=== PATIENT | male | born 1990 | race Caucasian/White ===

== ENCOUNTER 2016-06-26 18:31 | Emergency (ER) | payer OTHER, BC ==
[~2016-06-26] VITALS: Ht 172.7 cm; Wt 81.1 kg
[~2016-06-26 18:31] MED LIST: METO25TA3 PO; PRLSR20 PO
[2016-06-26 18:53] VITALS: TEMP 36.7; Ht 172.7 cm; Wt 81.1 kg
--- NOTE | 2016-06-26 19:33 | DIAGNOSTIC IMAGING REPORT ---
RIGHT HAND MIN 3 VIEWS ROUTINE CLINICAL HISTORY: Right hand pain COMPARISON: None. DISCUSSION: There is an old ununited ulnar styloid fracture. No acute fractures are visualized. There are no erosive or destructive changes. There is equivocal soft tissue swelling. IMPRESSION: Old ununited ulnar styloid fracture. No acute fractures or dislocations identified. Electronically signed by: Telly Jones M.D. 06/26/2016 7:31 PM Dictated Date/Time: 06/26/2016 7:30 PM
--- NOTE | 2016-06-26 19:48 | DIAGNOSTIC IMAGING REPORT ---
LEFT ELBOW MIN 3 VIEWS ROUTINE CLINICAL HISTORY: Left elbow pain status post trauma COMPARISON: None. DISCUSSION: The fat pads are not displaced. No fractures or dislocations are visualized. IMPRESSION: No fractures or dislocations identified. Electronically signed by: Telly Jones M.D. 06/26/2016 7:46 PM Dictated Date/Time: 06/26/2016 7:45 PM
--- NOTE | 2016-06-26 20:08 | DIAGNOSTIC IMAGING REPORT ---
CT HEAD WITHOUT CONTRAST (CT) CLINICAL HISTORY: Headache. Intoxication. COMPARISON STUDY: 10/24/2010 TECHNIQUE: Axial CT of the brain is performed from the vertex to the skull base. IV contrast was not administered for this examination. CT DOSE: FINDINGS: No intra or extra-axial mass lesions are visualized. There is no CT evidence of acute cortical infarction. There is no evidence of midline shift. There is no acute hemorrhage. No calvarial fractures are visualized. There is no evidence of pathologic ventricular dilatation. There is no evidence of acute sinusitis IMPRESSION: Normal noncontrast head CT. Electronically signed by: Telly Jones M.D. 06/26/2016 8:06 PM Dictated Date/Time: 06/26/2016 8:05 PM
--- NOTE | 2016-06-26 20:18 | DIAGNOSTIC IMAGING REPORT ---
CT OF THE CERVICAL SPINE CLINICAL HISTORY: Neck pain status post trauma. Intoxication. COMPARISON STUDY: 10/09/2010 CT DOSE: 1321.61 mGy.cm TECHNIQUE: CT scan of the cervical spine was performed from the skull base to the thoracic inlet. Images are reviewed in the axial, sagittal, and coronal planes. IV contrast was not administered for this examination. FINDINGS: The visualized portions of the lung apices reveal no evidence of pneumothorax. The prevertebral soft tissues are normal. No fractures or subluxations are visualized. IMPRESSION: No evidence of acute fracture or traumatic subluxation. Electronically signed by: Telly Jones M.D. 06/26/2016 8:16 PM Dictated Date/Time: 06/26/2016 8:15 PM
--- NOTE | 2016-06-26 20:51 | EMERGENCY ROOM VISIT NOTE ---
History First contact with patient: 19:00 Chief Complaint: WRIST PAIN Stated Complaint: R THUMB/WRIST INJURY History of Present Illness The patient is a 25 year old male who presents to the Emergency Room via private vehicle accompanied by father with complaints of "right thumb/wrist injury". The patient states that he has been drinking this evening attending the [facility], when he was in the back of a stationary truck 2 hours prior to arrival and fell to the ground, injuring his right thumb, left elbow and striking his head. The patient states that he is here because he cannot move his right thumb. He also states that he struck his head off of the ground and may have lost consciousness. He notes anything it is painful at this time is a right thumb but rates the pain as a 0/10. There is a small abrasion on the left elbow. His tetanus is believed to be up-to-date. Review of Systems A complete 6-point Review of Systems was discussed with the patient, with pertinent positives and negatives listed in the History of Present Illness. All remaining Review of Systems questions can be considered negative unless otherwise specified. Past Medical/Surgical History Medical Problems: (1) Appendectomy (2) Bicuspid aortic valve (3) GERD (gastroesophageal reflux disease) (4) Left ankle sprain (5) Left ankle sprain Surgical Problems: (1) History of tonsillectomy Family History Cancer Diabetes mellitus Gallbladder disease Heart disease Hypertension Kidney disease Kidney stones Social History Smoking Status: Current Every Day Smoker Alcohol Use: heavy Marital Status: in relationship Housing Status: lives with family Occupation Status: employed Current/Historical Medications Scheduled Metoprolol Succinate (Toprol Xl), 25 MG PO DAILY Omeprazole (Prilosec), 20 MG PO DAILY Scheduled PRN Oxycodone Ir (Roxicodone Ir), 1-2 TAB PO Q4H PRN for Pain Allergies Coded Allergies: No Known Allergies (Verified , 01/31/14) Physical Exam Vital Signs Date Time Temp Pulse Resp B/P Pulse Ox O2 Delivery O2 Flow Rate FiO2 06/26/16 21:13 111 18 142/94 96 06/26/16 18:53 36.7 82 16 134/82 98 Room Air Physical Exam VITAL SIGNS - Vital signs and nursing notes were reviewed. Afebrile, normotensive, non-tachycardic and is saturating well on room air 98%. GENERAL -25-year-old male appearing his stated age who is in no acute distress. Communicates well with provider and answers questions appropriately. SKIN - Without rashes. There is a small abrasion noted to the left elbow overlying the olecranon process. There is also a small abrasion noted to the dorsal aspect of the distal right thumb. HEAD - NC/AT. EYES - PERRL with EOMI bilaterally. Sclera anicteric. Palpebral conjunctiva pink and moist with no injection noted. EARS - No deformities of external structures noted on gross examination bilaterally. No pain elicited with palpation of the tragus bilaterally. External auditory canals without discharge or otorrhea. Tympanic membranes pearly blanchard without retraction or bulging. No fluid or purulent material visualized behind the TM. Handle of malleus, umbo, cone of light, pars tensa/ flaccid all easily visualized. NOSE - Midline and without cyanosis. No epistaxis or purulent drainage noted. Septum midline without deviation or septal hematoma noted. MOUTH/OROPHARYNX - Without perioral cyanosis. Buccal mucosa pink and moist and without leukoplakia. Tongue midline with equal elevation of palate bilaterally. No tonsillar hypertrophy, erythema, or exudates noted. Fair dentition noted. NECK - Neck with FROM. Supple to palpation. There is slight C-spine processes tenderness. LUNGS - Chest wall symmetric without accessory muscle use, intercostals retractions, or central cyanosis. Normal vesicular breath sounds CTA B/L. No wheezes, rales, or rhonchi appreciated. CARDIAC - RRR with S1/S2. No murmur, rubs, or gallops appreciated. EXTREMITIES - No clubbing or peripheral cyanosis. No pretibial edema present. He is neurovascularly intact in the right upper extremity. +5/5 strength noted in UE/LE bilaterally. There is tenderness to passive range of motion of the right thumb. There is no anatomical snuffbox tenderness. He is neurovascularly intact. NEUROLOGIC - Cranial nerves II through XII grossly intact. PSYCH - Pt is very pleasant and interacts well with examiner. Medical Decision & Procedures ER Provider Diagnostic Interpretation: CT OF THE CERVICAL SPINE CLINICAL HISTORY: Neck pain status post trauma. Intoxication. COMPARISON STUDY: 10/09/2010 CT DOSE: 1321.61 mGy.cm TECHNIQUE: CT scan of the cervical spine was performed from the skull base to the thoracic inlet. Images are reviewed in the axial, sagittal, and coronal planes. IV contrast was not administered for this examination. FINDINGS: The visualized portions of the lung apices reveal no evidence of pneumothorax. The prevertebral soft tissues are normal. No fractures or subluxations are visualized. IMPRESSION: No evidence of acute fracture or traumatic subluxation. Electronically signed by: Telly Jones M.D. 06/26/2016 8:16 PM Dictated Date/Time: 06/26/2016 8:15 PM LEFT ELBOW MIN 3 VIEWS ROUTINE CLINICAL HISTORY: Left elbow pain status post trauma COMPARISON: None. DISCUSSION: The fat pads are not displaced. No fractures or dislocations are visualized. IMPRESSION: No fractures or dislocations identified. Electronically signed by: Telly Jones M.D. 06/26/2016 7:46 PM Dictated Date/Time: 06/26/2016 7:[address] HEAD WITHOUT CONTRAST (CT) CLINICAL HISTORY: Headache. Intoxication. COMPARISON STUDY: 10/24/2010 TECHNIQUE: Axial CT of the brain is performed from the vertex to the skull base. IV contrast was not administered for this examination. CT DOSE: FINDINGS: No intra or extra-axial mass lesions are visualized. There is no CT evidence of acute cortical infarction. There is no evidence of midline shift. There is no acute hemorrhage. No calvarial fractures are visualized. There is no evidence of pathologic ventricular dilatation. There is no evidence of acute sinusitis IMPRESSION: Normal noncontrast head CT. Electronically signed by: Telly Jones M.D. 06/26/2016 8:06 PM Dictated Date/Time: 06/26/2016 8:05 PM RIGHT HAND MIN 3 VIEWS ROUTINE CLINICAL HISTORY: Right hand pain COMPARISON: None. DISCUSSION: There is an old ununited ulnar styloid fracture. No acute fractures are visualized. There are no erosive or destructive changes. There is equivocal soft tissue swelling. IMPRESSION: Old ununited ulnar styloid fracture. No acute fractures or dislocations identified. Electronically signed by: Telly Jones M.D. 06/26/2016 7:31 PM Dictated Date/Time: 06/26/2016 7:30 PM Medications Administered Medications (Trade) Dose Ordered Sig/Que Route Start Time Stop Time Status Last Admin Dose Admin Oxycodone HCl (Roxicodone Immediate Rel 5MG Home Pack) 1 homepack UD STAT PO 06/26/16 20:58 06/26/16 20:59 DC 06/26/16 20:[address] Medical Decision Patient was seen and evaluated as above. He presents with an inability to move his right thumb, and through further history was identified that the patient fell, may have lost consciousness struck his head and also has neck pain. He also has bleeding of the left elbow. Radiographs were obtained of the affected extremities, and CT of the head and neck were also obtained. Results as above. These were all negative for acute process. I suspect the patient is likely experiencing a gamekeeper's thumb. He has no neurologic deficit, and has vascular supply. His pulses are excellent. His pain is pinpoint over the region of the UCL. I will place him in a thumb spica Ortho-Glass to protect this region, and he is to follow-up with orthopedics. He is currently intoxicated and obtaining a thorough history and physical exam was somewhat skewed, as the patient noted that he was not in any pain, Yet when I palpated over the right thumb he withdrew and pain. He is accompanied by his father. I informed them that he is to return tomorrow if he wakes up with any new pains or ailments. He was sent home with a home pack for OxyIR as well as a prescription for his pain. He was educated upon management, educated upon worrisome symptoms which to return and was discharged home in good condition. In the evaluation and treatment of this patient the following differential diagnoses were entertained: Gamekeeper's thumb, navicular fracture, finger fracture, elbow fracture, intracranial abnormalities, cervical fracture, among others. Impression Primary Impression: Pain of right thumb Additional Impression: Closed head injury Departure Information Dispostion Home / Self-Care Condition GOOD Prescriptions Oxycodone Ir (Roxicodone Ir) 5 Mg Tab 1-2 TAB PO Q4H Y for Pain, #15 TAB For Initial Treatment Prov: César Wilkins PA-C 06/26/16 Referrals Migue Solitario M.D. (PCP) Fabian Doherty MD Patient Instructions My [facility] Additional Instructions You have been treated in the Emergency Department for Wrist Pain/thumb pain. You have been prescribed Oxy IR to be used for pain control. This is a narcotic medication. You cannot drive or consume alcohol while on this medicine. This medicine should only be used for pain that cannot be controlled with over-the- counter pain medicines. For pain control, you can use the following [id number] medicines (if >12 yo): - Regular strength (325mg/tab) Tylenol (acetaminophen) 2 tabs every 4-6 hours as needed. Do not exceed 12 tablets in a 24 hour period. Avoid taking more than 3 grams (3000 mg) of Tylenol per day. This includes any other sources of acetaminophen you may take on a regular basis. - Regular strength (200 mg/tab) Advil (ibuprofen) 1-2 tabs every 4-6 hours as needed. Do not exceed a dose of 3200 mg per day. If this is a recent injury (<24 hrs), ice can be applied to the area of pain for the first 3 days to help decrease pain and inflammation. You have been provided the number for an Orthopaedic Surgeon. You should call this number as soon as possible to establish a follow-up visit from today's Emergency Department visit. Keep the brace/splint in place until evaluated by Orthopedics. Return to the Emergency Department if your current symptoms worsen despite treatment course outlined above, or if you develop any of the following symptoms : intractable pain despite aforementioned treatment course or new onset of numbness or tingling of the fingers. Please return to the emergency department with any new/concerning symptoms. Problem Qualifiers
[2016-06-26] MEDS ORDERED: OXYC1TAB3 PO (20:56)
[2016-06-26] MEDS ORDERED: OXYCODONE IR HOME PACK PO STA (20:58)
[2016-06-26 21:13] VITALS: BP 142/94; PULSE 111; O2SAT 96
== END 2016-06-26 21:26 | disposition home or self-care (01) ==
LOC: C.EDB 18:34 → C.EDD 21:26
DX: M79.644 Pain in right finger(s) (principal); S09.90XA Unspecified injury of head, initial encounter; V58.2XXA Person on outside of pick-up truck or van injured in noncollision transport accident in nontraffic accident, initial encounter; S50.312A Abrasion of left elbow, initial encounter; S60.311A Abrasion of right thumb, initial encounter; Q23.1 Congenital insufficiency of aortic valve; K21.9 Gastro-esophageal reflux disease without esophagitis; F17.200 Nicotine dependence, unspecified, uncomplicated; Z83.3 Family history of diabetes mellitus; Z82.49 Family history of ischemic heart disease and other diseases of the circulatory system; Z84.1 Family history of disorders of kidney and ureter

== ENCOUNTER 2017-10-07 22:51 | Emergency (ER) | payer BC, OTHER ==
[~2017-10-07] VITALS: Ht 172.7 cm; Wt 81.7 kg
[~2017-10-07 22:51] MED LIST changes: -METO25TA3 PO; +METO25TA4 PO
[2017-10-07 22:53] VITALS: BP 153/101; PULSE 92; TEMP 36.7; O2SAT 98; Ht 172.7 cm; Wt 81.7 kg
--- NOTE | 2017-10-07 23:23 | EMERGENCY ROOM VISIT NOTE ---
History Report prepared by Luh: Aura Westfall Under the Supervision of: Dr. James Valentino M.D. First contact with patient: 23:15 Chief Complaint: LACERATION/CUT (SUT/DERMABOND) Stated Complaint: RT HAND LACERATIONS Nursing Triage Summary: pt has lac to right hand after broken glass cut him from a microwave History of Present Illness The patient is a 26 year old male who presents to the Emergency Room for evaluation of right had injury. Dropped 100lb microwave on right hand and glass shattered. He is right handed. Mild pain but no numbness. No other injuries. Making fist makes pain worse, rest makes better. 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 Declines pain medications. Tetanus updated in last 10 yrs. This occurred about 1 hour RESTROOMS OR LOUNGES MAID and came in because bleeding continued. 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 He reports he was helping his neighbor install a microwave but it fell and the glass shattered over his right hand. He has some right hand pain but denies any numbness or any other pain. Source of History: patient Onset: 1 hour captain waiter Position: hand (right) Quality: other (laceration) Timing: other (after a mircowave fell on his hand and shattered) Associated Symptoms: No numbness Note: Positive right hand pain, Negative any other pain. Review of Systems See HPI for pertinent positives & negatives. A total of 6 systems reviewed and were otherwise negative. Past Medical & Surgical Medical Problems: (1) Appendectomy (2) Bicuspid aortic valve (3) GERD (gastroesophageal reflux disease) (4) Left ankle sprain (5) Left ankle sprain Surgical Problems: (1) History of tonsillectomy Family History Cancer Diabetes mellitus Gallbladder disease Heart disease Hypertension Kidney disease Kidney stones Social History Smoking Status: Current Some Day Smoker Alcohol Use: heavy Marital Status: in relationship Housing Status: lives with family Occupation Status: employed Current/Historical Medications Scheduled Metoprolol Succinate (Toprol Xl), 25 MG PO DAILY Omeprazole (Prilosec), 20 MG PO DAILY Allergies Coded Allergies: No Known Allergies (Verified , 01/31/14) Physical Exam Vital Signs Date Time Temp Pulse Resp B/P (MAP) Pulse Ox O2 Delivery O2 Flow Rate FiO2 10/07/17 22:53 36.7 92 20 153/101 98 Room Air Physical Exam GENERAL: Patient is well appearing and in no acute distress. EXTREMITIES: Normal motion all extremities, no cyanosis, no edema. NEUROLOGIC: Alert and oriented, no acute motor or sensory deficits, no focal weakness, cranial nerves grossly intact. SKIN: No rash, no jaundice, no diaphoresis. Crush injury right hand with macerated skin over dorsal 5th MCP joint. Several small abrasions 3rd and 4th digit. Distal N/V intact with full ROM all digits Medical Decision & Procedures ER Provider Diagnostic Interpretation: Radiology results and stated below per my review and interpretation: 3 VIEW RIGHT HAND XRAY No fracture. No dislocation. Mild soft tissue swelling over the lateral right 5th MCP. ED Course 2314: The patient was evaluated in room A12. A complete history and physical exam was performed. 2349: Reevaluated the patient. Discussed results and discharge instructions: [] verbalized understanding and agreement. The patient is ready for discharge. Medical Decision Right hand crush injury to 4th and 5th MCP joints and some abrasions over fingers. Macerated area over 5th MCP with small avulsion. I doubt this would benefit from suturing and it does not enter joint. Imaging without fracture nor dislocation. Discussed wound care and things to monitor for. Patient comfortable with plan and discharged. Medication Reconcilliation Current Medication List: was personally reviewed by me Blood Pressure Screening Patient's blood pressure: Elevated blood pressure Blood pressure disposition: Elevated BP felt to be situational Impression Primary Impression: Crushing injury of right hand Additional Impressions: Avulsion of skin of finger Maceration of skin Scribe Attestation The scribe's documentation has been prepared under my direction and personally reviewed by me in its entirety. I confirm that the note above accurately reflects all work, treatment, procedures, and medical decision making performed by me. Departure Information Dispostion Home / Self-Care Referrals Migue Solitario M.D. (PCP) Forms HOME CARE DOCUMENTATION FORM, IMPORTANT VISIT INFORMATION Patient Instructions [facility] Additional Instructions Keep wound clean. Apply antibacterial ointment daily over the next few days. Wound may ooze for the next few days and bleed some if you pull open the wound. Keep covered when working. Return if swelling, drainage, redness, fevers or other concerning findings for infection. Problem Qualifiers
--- NOTE | 2017-10-08 08:42 | DIAGNOSTIC IMAGING REPORT ---
RIGHT HAND 3 VIEWS CLINICAL HISTORY: Crushing injury. FINDINGS: 3 views of the right hand are compared to study dated 06/26/2016. The skeletal structures are well mineralized. No fracture is seen. There is a chronic avulsion injury of the ulnar styloid. The joint spaces of the hand are maintained. Mild dorsal soft tissue edema is noted at the level of the metacarpal heads. IMPRESSION: Mild soft tissue swelling with no radiographic evidence of acute fracture. Electronically signed by: Ethan Sapp M.D. 10/08/2017 8:41 AM Dictated Date/Time: 10/08/2017 8:40 AM
== END 2017-10-08 00:18 | disposition home or self-care (01) ==
LOC: C.EDB 22:52 → C.EDA 10-08 00:18
DX: S61.411A Laceration without foreign body of right hand, initial encounter (principal); S67.21XA Crushing injury of right hand, initial encounter; S60.412A Abrasion of right middle finger, initial encounter; S60.414A Abrasion of right ring finger, initial encounter; W20.8XXA Other cause of strike by thrown, projected or falling object, initial encounter; Q23.1 Congenital insufficiency of aortic valve; K21.9 Gastro-esophageal reflux disease without esophagitis; F17.210 Nicotine dependence, cigarettes, uncomplicated; Z80.9 Family history of malignant neoplasm, unspecified; Z83.3 Family history of diabetes mellitus; Z83.79 Family history of other diseases of the digestive system; Z82.49 Family history of ischemic heart disease and other diseases of the circulatory system; Z84.1 Family history of disorders of kidney and ureter; Z79.899 Other long term (current) drug therapy